=== PATIENT | female | born 1965 | race African-American/Black ===

== ENCOUNTER 2017-06-17 18:24 | Inpatient (IN) | payer OTHER ==
[2017-06-17 19:55] VITALS: BMI 27.4
--- NOTE | 2017-06-17 19:55 | HP ---
CIWA Score - CIWA Score Nausea/Vomitin-Mild Nausea/No Vomiting Muscle Tremors: 4-Moderate,w/Arms Extend Anxiety: 4-Mod. Anxious/Guarded Agitation: 4-Moderately Restless Paroxysmal Sweats: 1-Minimal Palms Moist Orientation: 0-Oriented Tacttile Disturbances: 0-None Auditory Disturbances: 0-None Visual Disturbances: 0-None Headache: 0-None Present CIWA-Ar Total Score: 14 Admission ROS [facility] - HPI Chief Complaint: withdrawal sx Allergies/Adverse Reactions: Allergies Allergy/AdvReac Type Severity Reaction Status Date / Time No Known Allergies Allergy Verified 06/17/17 17:22 History of Present Illness: 51 years old female with long history of alcohol nicotine dependence has hypertension, diabetes ii hepatitis c and bipolar ii is admitted to detox Exam Limitations: No Limitations - Ebola screening Have you traveled outside of the country in the last 21 days: No Have you had contact with anyone from an Ebola affected area: No Do you have a fever: No - Review of Systems Constitutional: Changes in sleep, Weight Stable EENT: reports: Blurred Vision (need eye glasses) Respiratory: reports: No Symptoms reported Cardiac: reports: No Symptoms Reported GI: reports: Constipated, Nausea, Poor Fluid Intake, Indigestion, Abdominal cramping : reports: No Symptoms Reported Musculoskeletal: reports: Back Pain, Joint Pain (left) Integumentary: reports: No Symptoms Reported Neuro: reports: Tremors Endocrine: reports: No Symptoms Reported Hematology: reports: No Symptoms Reported Psychiatric: reports: Judgement Intact, Orientated x3, Anxious, Depressed Other Systems: Reviewed and Negative Patient History - Patient Medical History Hx Anemia: No Hx Asthma: No Hx Chronic Obstructive Pulmonary Disease (COPD): No Hx Cancer: No Hx Cardiac Disorders: No Hx Congestive Heart Failure: No Hx Hypertension: Yes Hx Hypercholesterolemia: No Hx Pacemaker: No HX Cerebrovascular Accident: No Hx Seizures: No Hx Dementia: No Hx Diabetes: Yes Hx Gastrointestinal Disorders: Yes Hx Liver Disease: No Hx Genitourinary Disorders: No Hx Sexually Transmitted Disorders: No Hx Renal Disease (ESRD): No Hx Thyroid Disease: No Hx Human Immunodeficiency Virus (HIV): No Hx Hepatitis C: Yes Hx Depression: No Hx Suicide Attempt: No Hx Bipolar Disorder: Yes Hx Schizophrenia: No - Patient Surgical History Past Surgical History: Yes Hx Neurologic Surgery: No Hx Cataract Extraction: No Hx Cardiac Surgery: No Hx Lung Surgery: No Hx Breast Surgery: Yes (left ) Hx Breast Biopsy: No Hx Abdominal Surgery: No Hx Appendectomy: No Hx Cholecystectomy: No Hx Genitourinary Surgery: No Hx Section: No Hx Orthopedic Surgery: No Hx Hysterectomy: Yes (2014) Anesthesia Reaction: No - PPD History Previous Implant?: Yes Documented Results: Negative w/o proof Implanted On Prior [facility] Admission?: No PPD to be Administered?: Yes - Reproductive History Patient is a Female of Child Bearing Age (11 -55 yrs old): Yes Last Menstrual Period: 06/17/15 Patient : No - Smoking Cessation Smoking history: Current every day smoker Have you smoked in the past 12 months: Yes Aproximately how many cigarettes per day: 20 Cigars Per Day: 0 Hx Chewing Tobacco Use: No Initiated information on smoking cessation: Yes 'Breaking Loose' booklet given: 06/17/17 - Substance & Tx. History Hx Alcohol Use: Yes Hx Substance Use: No Substance Use Type: Alcohol Hx Substance Use Treatment: Yes (2014) - Substances Abused Alcohol Route: Oral Frequency: Daily Amount used: pint vodka, rum, Age of first use: 26 Date of Last Use: 06/17/17 Family Disease History - Family Disease History Family Disease History: [place]: Father (), Other: Father, Mother () , Brother ( hiv) Admission Physical Exam [facility] - Physical General Appearance: Yes: Nourished, Appropriately Dressed, Mild Distress, Tremorous, Irritable, Sweating, Anxious HEENTM: Yes: Hearing grossly Normal, Normal ENT Inspection, Normocephalic, Normal Voice Respiratory: Yes: Chest Non-Tender, Lungs Clear, Normal Breath Sounds, No Respiratory Distress, No Accessory Muscle Use Neck: Yes: Supple, Trachea in good position Breast: Yes: Breasts Symetrical Cardiology: Yes: Regular Rhythm, Regular Rate, S1, S2 Abdominal: Yes: Non Tender, Soft, Decreased BS Genitourinary: Yes: Within Normal Limits Back: Yes: Normal Inspection Musculoskeletal: Yes: full range of Motion, Gait Steady, Muscle Pain (right leg) Extremities: Yes: Normal Inspection, Normal Range of Motion, Non-Tender, Tremors Neurological: Yes: Fully Oriented, Alert, Motor Strength 5/5, Normal Response, Depressed Affect Integumentary: Yes: Warm Lymphatic: Yes: Within Normal Limits - Diagnostic (1) Alcohol dependence with uncomplicated withdrawal Current Visit: Yes Status: Acute (2) Diabetes mellitus type II, controlled Current Visit: Yes Status: Chronic Qualifiers: Diabetes mellitus complication status: without complication Diabetes mellitus chcf insulin use: without manager labor relations use Qualified Code(s): E11.9 - Type 2 diabetes mellitus without complications (3) Hepatitis C Current Visit: Yes Status: Chronic Qualifiers: Viral hepatitis chronicity: carrier Qualified Code(s): B18.2 - Chronic viral hepatitis C (4) Nicotine dependence Current Visit: Yes Status: Acute Qualifiers: Nicotine product type: cigarettes Substance use status: in withdrawal Qualified Code(s): F17.213 - Nicotine dependence, cigarettes, with withdrawal (5) Hypertension Current Visit: Yes Status: Chronic Qualifiers: Hypertension type: essential hypertension Qualified Code(s): I10 - Essential (primary) hypertension (6) GERD (gastroesophageal reflux disease) Current Visit: Yes Status: Chronic Qualifiers: Esophagitis presence: without esophagitis Qualified Code(s): K21.9 - Gastro -esophageal reflux disease without esophagitis (7) Constipation Current Visit: Yes Status: Chronic Qualifiers: Constipation type: slow transit constipation Qualified Code(s): K59.01 - Slow transit constipation (8) Sensitive skin Current Visit: Yes Status: Chronic (9) Bipolar II disorder Current Visit: Yes Status: Suspected Cleared for Admission S - Detox or Rehab [facility] Level of Care: Medically Managed Detox Regimen/Protocol: Librium S Breath Alcohol Content Breath Alcohol Content: 0 Vital Signs - Vital Signs Vital Signs Refused: No Temperature: 98 F Temperature Source: Oral Pulse Rate: 85 Respiratory Rate: 18 Blood Pressure: 125/87 BP Location: Left Arm Blood Pressure Position: Sitting - Height Height: 5 ft 2 in - Weight Weight: 150 lb Weight Measurement Method: Standing Scale Body Mass Index (BMI): 27.4 - Bowel Function Bowel Movement: No Urine Pregancy Test - Result Urine Test Results: Negative- NO Line Present Urine Drug Screen - Control Is Test Valid: Yes - Results Drug Screen Negative: Yes
[2017-06-17] MEDS ORDERED: P-EPHED 60MG/TRIPROLIDI 2.5MG TABLET PO PRN (20:02)
[2017-06-17] MEDS ORDERED: ACETAMINOPHEN 325 MG TABLET (FP) PO PRN (20:02)
[2017-06-17] MEDS ORDERED: MENTHOL/PHENOL 1 EACH UD MM PRN (20:02)
[2017-06-17] MEDS ORDERED: MAG HYDROX/AL HYDROX/SIMETH 30 ML UNIT-DOSE CUP PO PRN (20:02)
[2017-06-17] MEDS ORDERED: NICOTINE POLACRILEX 4 MG GUM BC PRN (20:02)
[2017-06-17] MEDS ORDERED: MAGNESIUM CITRATE 300 ML BOTTLE PO PRN (20:02)
[2017-06-17] MEDS ORDERED: LOPERAMIDE HCL 2 MG CAPSULE PO PRN (20:02)
[2017-06-17] MEDS ORDERED: MAGNESIUM HYDROX 2400MG/30ML ORAL SUSPENSION 30 ML CUP PO PRN (20:02)
[2017-06-17] MEDS ORDERED: guaiFENesin/D-METHORPHAN HB 10 ML UNIT-DOSE CUPS PO PRN (20:02)
[2017-06-17] MEDS ORDERED: DOCUSATE SODIUM 100 MG CAPSULE (FP) PO PRN (20:04)
[2017-06-17] MEDS: chlordiazePOXIDE HCL 25 MG CAPSULE PO PRN (20:31)
[2017-06-17] MEDS: RANITIDINE HCL 150 MG TABLET (FP) PO SCH ×2 (20:31→22:30)
[2017-06-17] MEDS: GABAPENTIN 400 MG CAPSULE (FP) PO SCH (22:30)
[2017-06-17] MEDS: SENNOSIDES 8.6MG TABLET (FP) PO SCH (22:30)
[2017-06-17] MEDS: THIAMINE HCL 100 MG TABLET (FP) PO SCH (22:30)
[2017-06-17] MEDS: chlordiazePOXIDE HCL 25 MG CAPSULE PO SCH (22:30)
[2017-06-18 00:19] LABS: URINE APPEARANCE SLCLOUDY; URINE BILIRUBIN NEGATIVE (NEGATIVE); URINE BLOOD NEGATIVE (NEGATIVE); URINE COLOR YELLOW; URINE GLUCOSE (UA) NEGATIVE (NEGATIVE); URINE KETONE NEGATIVE (NEGATIVE); URINE NITRITE NEGATIVE (NEGATIVE); URINE PROTEIN NEGATIVE (NEGATIVE); URINE UROBILINOGEN NEGATIVE mg/dL (0.2-1.0)
[2017-06-18] MEDS: chlordiazePOXIDE HCL 25 MG CAPSULE PO SCH ×4 (05:11→22:36)
[2017-06-18] MEDS: GABAPENTIN 400 MG CAPSULE (FP) PO SCH ×3 (05:11→22:36)
[2017-06-18] MEDS: metFORMIN HCL 500 MG TABLET (FP) PO SCH ×2 (06:08→17:25)
--- NOTE | 2017-06-18 07:50 | CONSULT ---
[facility] Psychiatric Consult - Data Date of interview: 06/18/17 Admission source: [facility] Identifying data: This is 51 years old female with no psychiatric hospitalization history intoxicated with: Alcohol and Nicotine Substance Abuse History: - Smoking Cessation. Smoking history: Current every day smoker. Have you smoked in the past 12 months: Yes. Aproximately how many cigarettes per day: 20. Cigars Per Day: 0. Hx Chewing Tobacco Use: No. Initiated information on smoking cessation: Yes. 'Breaking Loose' booklet given : 06/17/17. - Substance & Tx. History. Hx Alcohol Use: Yes. Hx Substance Use : No. Substance Use Type: Alcohol. Hx Substance Use Treatment: Yes (2014). - Substances Abused. Alcohol. Route: Oral. Frequency: Daily. Amount used: pint vodka, rum,. Age of first use: 26. Date of Last Use: 06/17/17 Medical History: DM-2, HEP C+, HTN, GERD, Psychiatric History: As per computer patient carries Bipolar disorder, patioent reports no histrory of psychiatric hospitalizations, reports taking prior to admission: Celexa 40mg poqd. Remeron 30mg po qhs Physical/Sexual Abuse/Trauma History: Denies Additional Comment: Celexa 40mg poqd. Remeron 30mg po qhs Mental Status Exam - Mental Status Exam Alert and Oriented to: Person Cognitive Function: Fair Patient Appearance: Unkempt Mood: Sad Affect: Flat Patient Behavior: Sedated Speech Pattern: Delayed Voice Loudness: Mildly Soft/Quiet Thought Process: Goal Oriented Thought Disorder: Being Controlled Hallucinations: Denies Suicidal Ideation: Denies Homicidal Ideation: Denies Insight/Judgement: Fair Sleep: Difficulty falling asleep Appetite: Fair Muscle strength/Tone: Mild Hypotonicity Gait/Station: Shuffling Additional Comments: Celexa 40mg poqd. Remeron 30mg po qhs Psychiatric Findings - Problem List ([place] 1, 2,3) (1) Drug-induced mood disorder Current Visit: Yes Status: Acute (2) Alcohol dependence with uncomplicated withdrawal Current Visit: Yes Status: Acute (3) Nicotine dependence Current Visit: Yes Status: Acute Qualifiers: Nicotine product type: cigarettes Substance use status: in withdrawal Qualified Code(s): F17.213 - Nicotine dependence, cigarettes, with withdrawal (4) Bipolar II disorder Current Visit: Yes Status: Suspected - Initial Treatment Plan Initial Treatment Plan: Celexa 40mg poqd. Remeron 30mg po qhs
[2017-06-18 09:55] LABS: MEAN CELL VOLUME 93.8 fl (80-96); MEAN PLT VOLUME 9.8 fl (7.5-11.1); PLATELET COUNT 240 K/MM3 (134-434); WHITE BLOOD COUNT 7.3 K/mm3 (4.0-10.0)
[2017-06-18 10:19] LABS: ALBUMIN 3.9 g/dl (3.4-5.0); ALK PHOS 74 U/L (45-117); ANION GAP 4 (8-16); BILIRUBIN,TOTAL 0.5 mg/dL (0.2-1.0); CALCIUM 9.8 mg/dL (8.5-10.1); CO2 33 mmol/L (21-32); CREATININE 0.9 mg/dL (0.55-1.02); GLUCOSE,RANDOM 84 mg/dL (74-106); SGOT/AST 30 U/L (15-37); SGPT/ALT 49 U/L (12-78); TOT PROT 8.1 g/dl (6.4-8.2)
[2017-06-18] MEDS: ASPIRIN 81 MG CHEWABLE TABLETS PO SCH (10:35)
[2017-06-18] MEDS: HYDROCHLOROTHIAZIDE 25 MG TABLET (FP) PO SCH (10:35)
[2017-06-18] MEDS: LISINOPRIL 20 MG TABLET (FP) PO SCH (10:35)
[2017-06-18] MEDS: CITALOPRAM HYDROBROMIDE 20 MG TABLET (FP) PO SCH (10:35)
[2017-06-18] MEDS: PRENATAL VITAMINS W/ FOLIC ACID TABLET (FP) PO SCH (10:35)
[2017-06-18] MEDS: RANITIDINE HCL 150 MG TABLET (FP) PO SCH ×2 (10:36→22:37)
[2017-06-18] MEDS: NICOTINE 21 MG/24 HOURS TOPICAL PATCH TD SCH (10:38)
[2017-06-18 11:28] LABS: URINE LEUK ESTERASE Negative (NEGATIVE)
[2017-06-18 12:32] LABS: HIV 1 & 2 AB NEGATIVE; HIV 1 AGp24 NEGATIVE
--- NOTE | 2017-06-18 13:08 | EKG ---
Test Reason : Blood Pressure : / mmHG Vent. Rate : 066 BPM Atrial Rate : 066 BPM P-R Int : 136 ms QRS Dur : 092 ms QT Int : 428 ms P-R-T Axes : 063 028 065 degrees QTc Int : 448 ms NORMAL SINUS RHYTHM POSSIBLE LEFT ATRIAL ENLARGEMENT LEFT VENTRICULAR HYPERTROPHY ABNORMAL ECG NO PREVIOUS ECGS AVAILABLE Confirmed by SRIDHAR MCMAHON MD ([id number]) on 06/18/2017 1:08:13 PM Referred By: Confirmed By:SRIDHAR MCMAHON MD
--- NOTE | 2017-06-18 13:38 | PN ---
[facility] CIWA - CIWA Score Nausea/Vomitin-No Nausea/No Vomiting Muscle Tremors: 4-Moderate,w/Arms Extend Anxiety: 3 Agitation: 3 Paroxysmal Sweats: 3 Orientation: 0-Oriented Tacttile Disturbances: 0-None Auditory Disturbances: 0-None Visual Disturbances: 0-None Headache: 1-Very Mild CIWA-Ar Total Score: 14 S Progress Note (SOAP) Subjective: agitation anxiety sweats chills tired Objective: 06/18/17 13:36 Vital Signs Temperature 97.8 F 06/18/17 09:35 Pulse Rate 73 06/18/17 09:35 Respiratory Rate 18 06/18/17 09:35 Blood Pressure 107/80 06/18/17 09:35 O2 Sat by Pulse Oximetry (%) Laboratory Tests 06/17/17 06/18/17 06/18/17 23:27 05:16 07:00 WBC 7.3 RBC 5.14 Hgb 15.9 H Hct 48.3 H MCV 93.8 MCH 31.0 MCHC 33.0 RDW 14.0 Plt Count 240 MPV 9.8 Sodium Potassium Chloride Carbon Dioxide Anion Gap BUN Creatinine Creat Clearance w eGFR POC Glucometer 104 Random Glucose Calcium Total Bilirubin AST ALT Alkaline Phosphatase Total Protein Albumin Urine Color Yellow Urine Appearance Slcloudy Urine pH 5.0 Ur Specific [place] 1.020 Urine Protein Negative Urine Glucose (UA) Negative Urine Ketones Negative Urine Blood Negative Urine Nitrite Negative Urine Bilirubin Negative Urine Urobilinogen Negative Ur Leukocyte Esterase Negative RPR Titer HIV 1&2 Antibody Screen HIV P24 Antigen 06/18/17 06/18/17 06/18/17 07:00 07:00 07:00 WBC RBC Hgb Hct MCV MCH MCHC RDW Plt Count MPV Sodium 135 L Potassium 4.9 Chloride 98 Carbon Dioxide 33 H Anion Gap 4 L BUN 17 Creatinine 0.9 Creat Clearance w eGFR > 60 POC Glucometer Random Glucose 84 Calcium 9.8 Total Bilirubin 0.5 AST 30 ALT 49 Alkaline Phosphatase 74 Total Protein 8.1 Albumin 3.9 Urine Color Urine Appearance Urine pH Ur Specific [place] Urine Protein Urine Glucose (UA) Urine Ketones Urine Blood Urine Nitrite Urine Bilirubin Urine Urobilinogen Ur Leukocyte Esterase RPR Titer Nonreactive HIV 1&2 Antibody Screen Negative HIV P24 Antigen Negative aaox3 ambulating no acute distress Assessment: 06/18/17 13:37 withdrawal sx Plan: continue detox increase fluids
[2017-06-18] MEDS ORDERED: COLLOIDAL OATMEAL 1 BAR EACH TP PRN (15:38)
[2017-06-18] MEDS: CYCLOBENZAPRINE HCL 10 MG TABLET (FP) PO PRN (17:25)
[2017-06-18] MEDS: SENNOSIDES 8.6MG TABLET (FP) PO SCH (22:37)
[2017-06-18] MEDS: THIAMINE HCL 100 MG TABLET (FP) PO SCH (22:37)
[2017-06-18] MEDS: MIRTAZAPINE 15 MG TABLET (FP) PO SCH (22:37)
[2017-06-19] MEDS: chlordiazePOXIDE HCL 25 MG CAPSULE PO PRN (01:32)
[2017-06-19] MEDS: GABAPENTIN 400 MG CAPSULE (FP) PO SCH ×3 (05:53→22:54)
[2017-06-19] MEDS: chlordiazePOXIDE HCL 25 MG CAPSULE PO SCH ×3 (05:53→17:13)
[2017-06-19] MEDS: CYCLOBENZAPRINE HCL 10 MG TABLET (FP) PO PRN ×2 (05:54→11:07)
[2017-06-19] MEDS: metFORMIN HCL 500 MG TABLET (FP) PO SCH ×2 (08:00→17:13)
[2017-06-19] MEDS: ASPIRIN 81 MG CHEWABLE TABLETS PO SCH (11:06)
[2017-06-19] MEDS: RANITIDINE HCL 150 MG TABLET (FP) PO SCH ×2 (11:07→22:53)
[2017-06-19] MEDS: PRENATAL VITAMINS W/ FOLIC ACID TABLET (FP) PO SCH (11:07)
[2017-06-19] MEDS: CITALOPRAM HYDROBROMIDE 20 MG TABLET (FP) PO SCH (11:07)
[2017-06-19] MEDS: NICOTINE 21 MG/24 HOURS TOPICAL PATCH TD SCH (11:07)
[2017-06-19] MEDS: HYDROCHLOROTHIAZIDE 25 MG TABLET (FP) PO SCH (11:07)
[2017-06-19] MEDS: LISINOPRIL 20 MG TABLET (FP) PO SCH (11:07)
[2017-06-19] MEDS ORDERED: PNEUMOC 13-VAL CONJ-DIP CRM/PF 0.5 ML DISP.SYRIN IM ONE (12:00)
[2017-06-19] MEDS ORDERED: PNEUMOCOCCAL 23 VACCINE 0.5 ML VIAL IM ONE (12:00)
--- NOTE | 2017-06-19 13:25 | PN ---
S CIWA - CIWA Score Nausea/Vomitin-Int. Nausea w/Dry Heave Muscle Tremors: 3 Anxiety: 3 Agitation: 3 Paroxysmal Sweats: 3 Orientation: 0-Oriented Tacttile Disturbances: 1-Very Mild Itch/Numbness Auditory Disturbances: 0-None Visual Disturbances: 0-None Headache: 1-Very Mild CIWA-Ar Total Score: 18 S Progress Note (SOAP) Subjective: nausea, sweats, interrupted sleep, anxeity, vomiting x1 last night Objective: 06/19/17 13:25 Vital Signs - 24 hr 06/18/17 06/18/17 06/18/17 14:59 17:23 17:46 Temperature 97.7 F 97.9 F Pulse Rate 81 73 84 Respiratory 18 18 48 H Rate Blood Pressure 103/66 89/66 111/82 06/18/17 06/19/17 06/19/17 21:59 00:30 03:30 Temperature 98.1 F Pulse Rate 68 Respiratory 16 18 18 Rate Blood Pressure 96/57 06/19/17 06/19/17 06:43 10:06 Temperature 97.7 F 97.5 F L Pulse Rate 66 75 Respiratory 16 18 Rate Blood Pressure 101/74 122/76 Laboratory Tests 06/17/17 06/18/17 06/18/17 23:27 05:16 07:00 WBC 7.3 RBC 5.14 Hgb 15.9 H Hct 48.3 H MCV 93.8 MCH 31.0 MCHC 33.0 RDW 14.0 Plt Count 240 MPV 9.8 Sodium Potassium Chloride Carbon Dioxide Anion Gap BUN Creatinine Creat Clearance w eGFR POC Glucometer 104 Random Glucose Calcium Total Bilirubin AST ALT Alkaline Phosphatase Total Protein Albumin Urine Color Yellow Urine Appearance Slcloudy Urine pH 5.0 Ur Specific [place] 1.020 Urine Protein Negative Urine Glucose (UA) Negative Urine Ketones Negative Urine Blood Negative Urine Nitrite Negative Urine Bilirubin Negative Urine Urobilinogen Negative Ur Leukocyte Esterase Negative RPR Titer HIV 1&2 Antibody Screen HIV P24 Antigen 06/18/17 06/18/17 06/18/17 07:00 07:00 07:00 WBC RBC Hgb Hct MCV MCH MCHC RDW Plt Count MPV Sodium 135 L Potassium 4.9 Chloride 98 Carbon Dioxide 33 H Anion Gap 4 L BUN 17 Creatinine 0.9 Creat Clearance w eGFR > 60 POC Glucometer Random Glucose 84 Calcium 9.8 Total Bilirubin 0.5 AST 30 ALT 49 Alkaline Phosphatase 74 Total Protein 8.1 Albumin 3.9 Urine Color Urine Appearance Urine pH Ur Specific [place] Urine Protein Urine Glucose (UA) Urine Ketones Urine Blood Urine Nitrite Urine Bilirubin Urine Urobilinogen Ur Leukocyte Esterase RPR Titer Nonreactive HIV 1&2 Antibody Screen Negative HIV P24 Antigen Negative 06/18/17 06/19/17 16:32 05:57 WBC RBC Hgb Hct MCV MCH MCHC RDW Plt Count MPV Sodium Potassium Chloride Carbon Dioxide Anion Gap BUN Creatinine Creat Clearance w eGFR POC Glucometer 98 97 Random Glucose Calcium Total Bilirubin AST ALT Alkaline Phosphatase Total Protein Albumin Urine Color Urine Appearance Urine pH Ur Specific [place] Urine Protein Urine Glucose (UA) Urine Ketones Urine Blood Urine Nitrite Urine Bilirubin Urine Urobilinogen Ur Leukocyte Esterase RPR Titer HIV 1&2 Antibody Screen HIV P24 Antigen Assessment: 06/19/17 13:25 withdroumar sx, cont detox, symptomatic relief, zofran ordred, fluids, encoruage ambulation
[2017-06-19] MEDS: SENNOSIDES 8.6MG TABLET (FP) PO SCH (22:53)
[2017-06-19] MEDS: MIRTAZAPINE 15 MG TABLET (FP) PO SCH (22:53)
[2017-06-19] MEDS: THIAMINE HCL 100 MG TABLET (FP) PO SCH (22:53)
[2017-06-19] MEDS: chlordiazePOXIDE 5 MG CAPSULE PO SCH (22:54)
[2017-06-20] MEDS: GABAPENTIN 400 MG CAPSULE (FP) PO SCH ×3 (05:31→22:51)
[2017-06-20] MEDS: chlordiazePOXIDE 5 MG CAPSULE PO SCH ×3 (05:32→17:38)
[2017-06-20] MEDS: metFORMIN HCL 500 MG TABLET (FP) PO SCH ×2 (06:34→17:38)
[2017-06-20] MEDS: PRENATAL VITAMINS W/ FOLIC ACID TABLET (FP) PO SCH (10:41)
[2017-06-20] MEDS: HYDROCHLOROTHIAZIDE 25 MG TABLET (FP) PO SCH (10:42)
[2017-06-20] MEDS: ASPIRIN 81 MG CHEWABLE TABLETS PO SCH (10:42)
[2017-06-20] MEDS: LISINOPRIL 20 MG TABLET (FP) PO SCH (10:42)
[2017-06-20] MEDS: CITALOPRAM HYDROBROMIDE 20 MG TABLET (FP) PO SCH (10:42)
[2017-06-20] MEDS: RANITIDINE HCL 150 MG TABLET (FP) PO SCH ×2 (10:43→22:51)
[2017-06-20] MEDS: CYCLOBENZAPRINE HCL 10 MG TABLET (FP) PO PRN ×2 (10:44→22:52)
[2017-06-20] MEDS: NICOTINE 21 MG/24 HOURS TOPICAL PATCH TD SCH (10:46)
[2017-06-20] MEDS ORDERED: SODIUM PHOSPHATE/NA BIPHOS 133 ML ENEMA PR ONE (11:30)
--- NOTE | 2017-06-20 11:30 | PN ---
[facility] Progress Note (SOAP) Subjective: pt. c/o constipation, was given MOM then Citroma and is still constipated. Objective: 06/20/17 11:28 Vital Signs - 8 hr 06/20/17 06/20/17 06/20/17 03:30 06:00 10:00 Temperature 98.2 F 98.1 F Pulse Rate 74 79 Respiratory 17 18 20 Rate Blood Pressure 130/85 124/90 Laboratory Tests 06/17/17 06/18/17 06/18/17 23:27 05:16 07:00 WBC 7.3 RBC 5.14 Hgb 15.9 H Hct 48.3 H MCV 93.8 MCH 31.0 MCHC 33.0 RDW 14.0 Plt Count 240 MPV 9.8 Sodium Potassium Chloride Carbon Dioxide Anion Gap BUN Creatinine Creat Clearance w eGFR POC Glucometer 104 Random Glucose Calcium Total Bilirubin AST ALT Alkaline Phosphatase Total Protein Albumin Urine Color Yellow Urine Appearance Slcloudy Urine pH 5.0 Ur Specific [place] 1.020 Urine Protein Negative Urine Glucose (UA) Negative Urine Ketones Negative Urine Blood Negative Urine Nitrite Negative Urine Bilirubin Negative Urine Urobilinogen Negative Ur Leukocyte Esterase Negative RPR Titer HIV 1&2 Antibody Screen HIV P24 Antigen 06/18/17 06/18/17 06/18/17 07:00 07:00 07:00 WBC RBC Hgb Hct MCV MCH MCHC RDW Plt Count MPV Sodium 135 L Potassium 4.9 Chloride 98 Carbon Dioxide 33 H Anion Gap 4 L BUN 17 Creatinine 0.9 Creat Clearance w eGFR > 60 POC Glucometer Random Glucose 84 Calcium 9.8 Total Bilirubin 0.5 AST 30 ALT 49 Alkaline Phosphatase 74 Total Protein 8.1 Albumin 3.9 Urine Color Urine Appearance Urine pH Ur Specific [place] Urine Protein Urine Glucose (UA) Urine Ketones Urine Blood Urine Nitrite Urine Bilirubin Urine Urobilinogen Ur Leukocyte Esterase RPR Titer Nonreactive HIV 1&2 Antibody Screen Negative HIV P24 Antigen Negative 06/18/17 06/19/17 06/19/17 16:32 05:57 16:23 WBC RBC Hgb Hct MCV MCH MCHC RDW Plt Count MPV Sodium Potassium Chloride Carbon Dioxide Anion Gap BUN Creatinine Creat Clearance w eGFR POC Glucometer 98 97 117 Random Glucose Calcium Total Bilirubin AST ALT Alkaline Phosphatase Total Protein Albumin Urine Color Urine Appearance Urine pH Ur Specific [place] Urine Protein Urine Glucose (UA) Urine Ketones Urine Blood Urine Nitrite Urine Bilirubin Urine Urobilinogen Ur Leukocyte Esterase RPR Titer HIV 1&2 Antibody Screen HIV P24 Antigen 06/20/17 05:30 WBC RBC Hgb Hct MCV MCH MCHC RDW Plt Count MPV Sodium Potassium Chloride Carbon Dioxide Anion Gap BUN Creatinine Creat Clearance w eGFR POC Glucometer 119 Random Glucose Calcium Total Bilirubin AST ALT Alkaline Phosphatase Total Protein Albumin Urine Color Urine Appearance Urine pH Ur Specific [place] Urine Protein Urine Glucose (UA) Urine Ketones Urine Blood Urine Nitrite Urine Bilirubin Urine Urobilinogen Ur Leukocyte Esterase RPR Titer HIV 1&2 Antibody Screen HIV P24 Antigen labs noted Assessment: 06/20/17 11:29 Withdrawal sx. Constipation Plan: Continue detox Fleet's enema
[2017-06-20] MEDS: ONDANSETRON *ODT* 4 MG TABLET SL PRN (13:52)
[2017-06-20] MEDS: SENNOSIDES 8.6MG TABLET (FP) PO SCH (22:51)
[2017-06-20] MEDS: THIAMINE HCL 100 MG TABLET (FP) PO SCH (22:51)
[2017-06-20] MEDS: MIRTAZAPINE 15 MG TABLET (FP) PO SCH (22:52)
[2017-06-20] MEDS: chlordiazePOXIDE HCL 10 MG CAPSULE PO SCH (22:52)
[2017-06-21] MEDS: GABAPENTIN 400 MG CAPSULE (FP) PO SCH (05:56)
[2017-06-21] MEDS: chlordiazePOXIDE HCL 10 MG CAPSULE PO SCH ×2 (05:56→11:00)
[2017-06-21] MEDS: CYCLOBENZAPRINE HCL 10 MG TABLET (FP) PO PRN (05:59)
[2017-06-21] MEDS: metFORMIN HCL 500 MG TABLET (FP) PO SCH (07:01)
--- NOTE | 2017-06-21 09:53 | DS ---
[facility] Detox Discharge Summary Admission Date: 06/17/17 Discharge Date: 06/21/17 - History Present History: Alcohol Dependence Pertinent Past History: DM 2, HTN, GERD - Physical Exam Results Vital Signs: Vital Signs Temperature 97.7 F 06/21/17 06:18 Pulse Rate 66 06/21/17 06:18 Respiratory Rate 16 06/21/17 06:18 Blood Pressure 143/73 06/21/17 06:18 O2 Sat by Pulse Oximetry (%) Pertinent Admission Physical Exam Findings: withdrawal sx Laboratory Last Values WBC 7.3 K/mm3 (4.0-10.0) 06/18/17 07:00 RBC 5.14 M/mm3 (3.60-5.2) 06/18/17 07:00 Hgb 15.9 GM/dL (10.7-15.3) H 06/18/17 07:00 Hct 48.3 % (32.4-45.2) H 06/18/17 07:00 MCV 93.8 fl (80-96) 06/18/17 07:00 MCH 31.0 pg (25.7-33.7) 06/18/17 07:00 MCHC 33.0 g/dl (32.0-36.0) 06/18/17 07:00 RDW 14.0 % (11.6-15.6) 06/18/17 07:00 Plt Count 240 K/MM3 (134-434) 06/18/17 07:00 MPV 9.8 fl (7.5-11.1) 06/18/17 07:00 Sodium 135 mmol/L (136-145) L 06/18/17 07:00 Potassium 4.9 mmol/L (3.5-5.1) 06/18/17 07:00 Chloride 98 mmol/L (98-107) 06/18/17 07:00 Carbon Dioxide 33 mmol/L (21-32) H 06/18/17 07:00 Anion Gap 4 (8-16) L 06/18/17 07:00 BUN 17 mg/dL (7-18) 06/18/17 07:00 Creatinine 0.9 mg/dL (0.55-1.02) 06/18/17 07:00 Creat Clearance w eGFR > 60 (>60) 06/18/17 07:00 POC Glucometer 102 UNITS (80-120) 06/21/17 05:54 Random Glucose 84 mg/dL (74-106) 06/18/17 07:00 Calcium 9.8 mg/dL (8.5-10.1) 06/18/17 07:00 Total Bilirubin 0.5 mg/dL (0.2-1.0) 06/18/17 07:00 AST 30 U/L (15-37) 06/18/17 07:00 ALT 49 U/L (12-78) 06/18/17 07:00 Alkaline Phosphatase 74 U/L (45-117) 06/18/17 07:00 Total Protein 8.1 g/dl (6.4-8.2) 06/18/17 07:00 Albumin 3.9 g/dl (3.4-5.0) 06/18/17 07:00 Urine Color Yellow 06/17/17 23:27 Urine Appearance Slcloudy 06/17/17 23:27 Urine pH 5.0 (5.0-8.0) 06/17/17 23:27 Ur Specific [place] 1.020 (1.001-1.035) 06/17/17 23:27 Urine Protein Negative (NEGATIVE) 06/17/17 23:27 Urine Glucose (UA) Negative (NEGATIVE) 06/17/17 23:27 Urine Ketones Negative (NEGATIVE) 06/17/17 23:27 Urine Blood Negative (NEGATIVE) 06/17/17 23:27 Urine Nitrite Negative (NEGATIVE) 06/17/17 23:27 Urine Bilirubin Negative (NEGATIVE) 06/17/17 23:27 Urine Urobilinogen Negative mg/dL (0.2-1.0) 06/17/17 23:27 Ur Leukocyte Esterase Negative (NEGATIVE) 06/17/17 23:27 RPR Titer Nonreactive (NONREACTIVE) 06/18/17 07:00 HIV 1&2 Antibody Screen Negative 06/18/17 07:00 HIV P24 Antigen Negative 06/18/17 07:00 Labs noted - Treatment Hospital Course: Detox Protocol Followed, Detoxed Safely, Responded well, Discharged Condition Good, Rehab Referral Accepted Patient has Accepted a Rehab Referral to: [facility] - Medication Discharge Medications: Ambulatory Orders Aspirin [ASA -] 81 mg PO DAILY 06/17/17 Docusate Sodium [Colace -] 100 mg PO DAILY PRN 11/29/17 Folic Acid - 1 mg PO DAILY 06/17/17 Gabapentin [Neurontin -] 400 mg PO Q8H 06/17/17 Lisinopril/Hydrochlorothiazide [Lisinopril-Hctz 20-25 mg Tab] 1 each PO DAILY Metformin HCl [Glucophage -] 500 mg PO BID 06/17/17 Citalopram Hydrobromide [Citalopram HBr] 40 mg PO DAILY #30 tablet 06/18/17 Mirtazapine [Remeron -] 30 mg PO HS #30 tablet 06/18/17 - Diagnosis (1) Alcohol dependence with uncomplicated withdrawal Current Visit: Yes Status: Acute (2) Constipation Current Visit: Yes Status: Chronic Qualifiers: Constipation type: slow transit constipation Qualified Code(s): K59.01 - Slow transit constipation (3) Diabetes mellitus type II, controlled Current Visit: Yes Status: Chronic Qualifiers: Diabetes mellitus complication status: without complication Diabetes mellitus custodial insulin use: without custodial use Qualified Code(s): E11.9 - Type 2 diabetes mellitus without complications (4) Drug-induced mood disorder Current Visit: Yes Status: Acute (5) GERD (gastroesophageal reflux disease) Current Visit: Yes Status: Chronic Qualifiers: Esophagitis presence: without esophagitis Qualified Code(s): K21.9 - Gastro -esophageal reflux disease without esophagitis (6) Hepatitis C Current Visit: Yes Status: Chronic Qualifiers: Viral hepatitis chronicity: carrier Qualified Code(s): B18.2 - Chronic viral hepatitis C (7) Hypertension Current Visit: Yes Status: Chronic Qualifiers: Hypertension type: essential hypertension Qualified Code(s): I10 - Essential (primary) hypertension - AMA Did Patient Leave Against Medical Advice: No
[2017-06-21 10:05] VITALS: BP 126/89; PULSE 81; TEMP 98.6
[2017-06-21] MEDS: ASPIRIN 81 MG CHEWABLE TABLETS PO SCH (10:59)
[2017-06-21] MEDS: PRENATAL VITAMINS W/ FOLIC ACID TABLET (FP) PO SCH (10:59)
[2017-06-21] MEDS: LISINOPRIL 20 MG TABLET (FP) PO SCH (10:59)
[2017-06-21] MEDS: RANITIDINE HCL 150 MG TABLET (FP) PO SCH (11:00)
[2017-06-21] MEDS: HYDROCHLOROTHIAZIDE 25 MG TABLET (FP) PO SCH (11:00)
[2017-06-21] MEDS: CITALOPRAM HYDROBROMIDE 20 MG TABLET (FP) PO SCH (11:00)
[2017-06-21] MEDS: ONDANSETRON *ODT* 4 MG TABLET SL PRN (11:00)
[2017-06-21] MEDS: NICOTINE 21 MG/24 HOURS TOPICAL PATCH TD SCH (11:01)
== END 2017-06-21 11:22 | disposition home or self-care (01) | DRG 775 ==
LOC: YASAS 18:24 → Y6N 18:49
PROVIDERS: ADMIT Internal Medicine; ATTEND Internal Medicine
PROC: HZ2ZZZZ Detoxification Services for Substance Abuse Treatment (ICD-10-PCS; principal; 2017-06-17)
DX: F10.230 Alcohol dependence with withdrawal, uncomplicated (principal); F19.24 Other psychoactive substance dependence with psychoactive substance-induced mood disorder; F31.81 Bipolar II disorder; I10 Essential (primary) hypertension; K21.9 Gastro-esophageal reflux disease without esophagitis; B18.2 Chronic viral hepatitis C; E11.9 Type 2 diabetes mellitus without complications; Z79.84 Long term (current) use of oral hypoglycemic drugs; K59.01 Slow transit constipation; Z59.0 Homelessness
CPT/HCPCS: 36415; 80053; 81003; 85027; 86593; 87389; 90732; 93005; 93010; G0009

== ENCOUNTER 2017-11-16 09:50 | Inpatient (IN) | payer OTHER ==
[2017-11-16 10:25] VITALS: BMI 27.4
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
[2017-11-16] MEDS ORDERED: ACETAMINOPHEN 325 MG TABLET (FP) PO PRN (13:23)
[2017-11-16] MEDS ORDERED: MAGNESIUM CITRATE 300 ML BOTTLE PO PRN (13:23)
[2017-11-16] MEDS ORDERED: IBUPROFEN 400 MG TABLET (FP) PO PRN (13:23)
[2017-11-16] MEDS ORDERED: hydrOXYzine PAMOATE 25 MG CAPSULE (FP) PO PRN (13:23)
[2017-11-16] MEDS ORDERED: P-EPHED 60MG/TRIPROLIDI 2.5MG TABLET PO PRN (13:23)
[2017-11-16] MEDS ORDERED: LOPERAMIDE HCL 2 MG CAPSULE PO PRN (13:23)
[2017-11-16] MEDS ORDERED: MAGNESIUM HYDROX 2400MG/30ML ORAL SUSPENSION 30 ML CUP PO PRN (13:23)
[2017-11-16] MEDS ORDERED: guaiFENesin/D-METHORPHAN HB 10 ML UNIT-DOSE CUPS PO PRN (13:23)
[2017-11-16] MEDS ORDERED: chlordiazePOXIDE HCL 25 MG CAPSULE PO PRN (13:23)
[2017-11-16] MEDS ORDERED: MAG HYDROX/AL HYDROX/SIMETH 30 ML UNIT-DOSE CUP PO PRN (13:23)
[2017-11-16] MEDS ORDERED: MENTHOL/PHENOL 1 EACH UD MM PRN (13:23)
[2017-11-16] MEDS ORDERED: chlordiazePOXIDE HCL 25 MG CAPSULE PO ONE (14:30)
[2017-11-16] MEDS: ASPIRIN 81 MG CHEWABLE TABLETS PO SCH (14:48)
[2017-11-16] MEDS: LISINOPRIL 10 MG TABLET (FP) PO SCH (14:48)
[2017-11-16] MEDS: HYDROCHLOROTHIAZIDE 25 MG TABLET (FP) PO SCH (14:48)
[2017-11-16] MEDS: NICOTINE 21 MG/24 HOURS TOPICAL PATCH TD SCH (14:49)
[2017-11-16] MEDS: metFORMIN HCL 500 MG TABLET (FP) PO SCH (17:52)
[2017-11-16] MEDS: chlordiazePOXIDE HCL 25 MG CAPSULE PO SCH ×2 (17:52→22:33)
[2017-11-16] MEDS ORDERED: MELATONIN 5 MG TABLETS PO PRN (22:00)
--- NOTE | 2017-11-16 22:05 | EKG ---
Test Reason : Blood Pressure : / mmHG Vent. Rate : 077 BPM Atrial Rate : 077 BPM P-R Int : 132 ms QRS Dur : 086 ms QT Int : 414 ms P-R-T Axes : 053 018 059 degrees QTc Int : 468 ms NORMAL SINUS RHYTHM POSSIBLE LEFT ATRIAL ENLARGEMENT T WAVE ABNORMALITY, CONSIDER ANTERIOR ISCHEMIA PROLONGED QT ABNORMAL ECG WHEN COMPARED WITH ECG OF 17-JUN-2017 20:43, NO SIGNIFICANT CHANGE WAS FOUND Confirmed by NICK LEVY, CRISTIANO ([id number]) on 11/16/2017 10:04:48 PM Referred By: Confirmed By:CRISTIANO ROMERO MD
[2017-11-16] MEDS: THIAMINE HCL 100 MG TABLET (FP) PO SCH (22:32)
[2017-11-16 22:59] LABS: URINE APPEARANCE TURBID; URINE BILIRUBIN NEGATIVE (<2.0 mg/dL); URINE BLOOD NEGATIVE (NEGATIVE); URINE COLOR AMBER; URINE GLUCOSE (UA) NEGATIVE (NEGATIVE); URINE KETONE NEGATIVE (NEGATIVE); URINE LEUK ESTERASE NEGATIVE (NEGATIVE); URINE NITRITE NEGATIVE (NEGATIVE); URINE PROTEIN NEGATIVE (NEGATIVE)
[2017-11-17] MEDS: metFORMIN HCL 500 MG TABLET (FP) PO SCH ×2 (06:12→19:18)
[2017-11-17] MEDS: chlordiazePOXIDE HCL 25 MG CAPSULE PO SCH ×4 (06:12→22:23)
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
[2017-11-17 10:01] LABS: HEMOGLOBIN 14.9 GM/dL (10.7-15.3); MCH 30.8 pg (25.7-33.7); MEAN CELL VOLUME 90.7 fl (80-96); MEAN PLT VOLUME 10.7 fl (7.5-11.1); PLATELET COUNT 197 K/MM3 (134-434); RBC 4.85 M/mm3 (3.60-5.2); RDW 14.3 % (11.6-15.6); WHITE BLOOD COUNT 4.2 K/mm3 (4.0-10.0)
[2017-11-17] MEDS: PRENATAL VITAMINS W/ FOLIC ACID TABLET (FP) PO SCH (10:54)
[2017-11-17] MEDS: LISINOPRIL 10 MG TABLET (FP) PO SCH (10:54)
[2017-11-17] MEDS: ASPIRIN 81 MG CHEWABLE TABLETS PO SCH (10:54)
[2017-11-17] MEDS: GABAPENTIN 400 MG CAPSULE (FP) PO SCH ×3 (10:55→22:23)
[2017-11-17] MEDS: NICOTINE 21 MG/24 HOURS TOPICAL PATCH TD SCH (10:57)
[2017-11-17 11:11] LABS: CHLORIDE 107 mmol/L (98-107); POTASSIUM 4.5 mmol/L (3.5-5.1); SODIUM 144 mmol/L (136-145)
[2017-11-17] MEDS: HYDROCHLOROTHIAZIDE 25 MG TABLET (FP) PO SCH (11:19)
[2017-11-17 11:33] LABS: ALBUMIN 3.6 g/dl (3.4-5.0); ALK PHOS 73 U/L (45-117); ANION GAP 9 (8-16); BILIRUBIN,TOTAL 0.8 mg/dL (0.2-1.0); BLOOD UREA NITROGEN 15 mg/dL (7-18); CALCIUM 9.2 mg/dL (8.5-10.1); CO2 28 mmol/L (21-32); CREATININE 0.9 mg/dL (0.55-1.02); GLUCOSE,RANDOM 98 mg/dL (74-106); SGOT/AST 54 U/L (15-37); SGPT/ALT 82 U/L (12-78); TOT PROT 7.4 g/dl (6.4-8.2)
--- NOTE | 2017-11-17 12:00 | PN ---
S CIWA - CIWA Score Nausea/Vomitin-Mild Nausea/No Vomiting Muscle Tremors: 4-Moderate,w/Arms Extend Anxiety: 4-Mod. Anxious/Guarded Agitation: 4-Moderately Restless Paroxysmal Sweats: 1-Minimal Palms Moist Orientation: 0-Oriented Tacttile Disturbances: 1-Very Mild Itch/Numbness Auditory Disturbances: 0-None Visual Disturbances: 0-None Headache: 0-None Present CIWA-Ar Total Score: 15 BHS Progress Note (SOAP) Subjective: tremor sweat anxiety restlessness trouble sleep at night Objective: 11/17/17 12:01 Vital Signs Temperature 97.3 F L 11/17/17 10:39 Pulse Rate 78 11/17/17 10:39 Respiratory Rate 18 11/17/17 10:39 Blood Pressure 150/93 11/17/17 10:39 O2 Sat by Pulse Oximetry (%) Laboratory Last Values WBC 4.2 K/mm3 (4.0-10.0) D 11/17/17 06:00 RBC 4.85 M/mm3 (3.60-5.2) 11/17/17 06:00 Hgb 14.9 GM/dL (10.7-15.3) 11/17/17 06:00 Hct 44.0 % (32.4-45.2) 11/17/17 06:00 MCV 90.7 fl (80-96) 11/17/17 06:00 MCH 30.8 pg (25.7-33.7) 11/17/17 06:00 MCHC 34.0 g/dl (32.0-36.0) 11/17/17 06:00 RDW 14.3 % (11.6-15.6) 11/17/17 06:00 Plt Count 197 K/MM3 (134-434) 11/17/17 06:00 MPV 10.7 fl (7.5-11.1) 11/17/17 06:00 Sodium 144 mmol/L (136-145) 11/17/17 06:00 Potassium 4.5 mmol/L (3.5-5.1) 11/17/17 06:00 Chloride 107 mmol/L (98-107) 11/17/17 06:00 Carbon Dioxide 28 mmol/L (21-32) 11/17/17 06:00 Anion Gap 9 (8-16) 11/17/17 06:00 BUN 15 mg/dL (7-18) 11/17/17 06:00 Creatinine 0.9 mg/dL (0.55-1.02) 11/17/17 06:00 Creat Clearance w eGFR > 60 (>60) 11/17/17 06:00 POC Glucometer 87 UNITS (80-120) 11/17/17 05:41 Random Glucose 98 mg/dL (74-106) 11/17/17 06:00 Calcium 9.2 mg/dL (8.5-10.1) 11/17/17 06:00 Total Bilirubin 0.8 mg/dL (0.2-1.0) D 11/17/17 06:00 AST 54 U/L (15-37) H 11/17/17 06:00 ALT 82 U/L (12-78) H 11/17/17 06:00 Alkaline Phosphatase 73 U/L (45-117) 11/17/17 06:00 Total Protein 7.4 g/dl (6.4-8.2) 11/17/17 06:00 Albumin 3.6 g/dl (3.4-5.0) 11/17/17 06:00 Urine Color Radha 11/16/17 23:00 Urine Appearance Turbid 11/16/17 23:00 Urine pH 5.0 (5.0-8.0) 11/16/17 23:00 Ur Specific [place] 1.024 (1.001-1.035) 11/16/17 23:00 Urine Protein Negative (NEGATIVE) 11/16/17 23:00 Urine Glucose (UA) Negative (NEGATIVE) 11/16/17 23:00 Urine Ketones Negative (NEGATIVE) 11/16/17 23:00 Urine Blood Negative (NEGATIVE) 11/16/17 23:00 Urine Nitrite Negative (NEGATIVE) 11/16/17 23:00 Urine Bilirubin Negative (<2.0 mg/dL) 11/16/17 23:00 Urine Urobilinogen 2.0 mg/dL (0.2-1.0) H 11/16/17 23:00 Ur Leukocyte Esterase Negative (NEGATIVE) 11/16/17 23:00 HIV 1&2 Antibody Screen Negative 11/16/17 12:50 HIV P24 Antigen Negative 11/16/17 12:50 lab noted Assessment: 11/17/17 12:01 withdrawal sx Plan: continue detox
--- NOTE | 2017-11-17 15:23 | DS ---
[facility] Detox Discharge Summary Admission Date: 11/16/17 Discharge Date: 11/17/17 - History Present History: Alcohol Dependence - Physical Exam Results Vital Signs: Vital Signs Temperature 96.6 F L 11/17/17 14:34 Pulse Rate 80 11/17/17 14:34 Respiratory Rate 20 11/17/17 14:34 Blood Pressure 140/87 11/17/17 14:34 O2 Sat by Pulse Oximetry (%) - Medication Discharge Medications: Ambulatory Orders Aspirin [ASA -] 81 mg PO DAILY 06/17/17 Folic Acid - 1 mg PO DAILY 06/17/17 Gabapentin [Neurontin -] 400 mg PO Q8H 06/17/17 Lisinopril/Hydrochlorothiazide [Lisinopril-Hctz 20-25 mg Tab] 1 each PO DAILY metFORMIN HCL [Glucophage -] 500 mg PO BID 06/17/17 Citalopram Hydrobromide [Citalopram HBr] 40 mg PO DAILY #30 tablet 06/18/17 Ibuprofen 800 mg PO Q6H PRN 11/16/17 Trazodone HCl 100 mg PO HS 11/16/17
--- NOTE | 2017-11-17 16:50 | PN ---
Psychiatric Progress Note Vital Signs: Vital Signs Period Temp Pulse Resp BP Sys/Cooper Pulse Ox Last 24 Hr 96.6 F-98.0 F 69-89 18-20 120-169/48-96 Date of Session: 11/17/17 Chief Complaint:: " I was upset. No one was listening." HPI: Patient admitted to for alcohol and cocaine dependence. ROS: Hypertension, diabetes, Hep C Current Medications: Active Medications Generic Name Dose Route Start Last Admin Trade Name Freq PRN Reason Stop Dose Admin Acetaminophen 650 mg 11/16/17 13:23 Tylenol - PO Q4H PRN FEVER Al Hydroxide/Mg Hydroxide 30 ml 11/16/17 13:23 Mylanta Oral Suspension - PO Q6H PRN DYSPEPSIA Aspirin 81 mg 11/16/17 14:30 11/17/17 10:54 Asa - PO 81 mg DAILY SANDRA Administration Chlordiazepoxide HCl 25 mg 11/17/17 17:00 Librium - PO 11/18/17 11:01 [id number] SANDRA Chlordiazepoxide HCl 15 mg 11/18/17 17:00 Librium - PO 11/19/17 11:01 [id number] SANDRA Chlordiazepoxide HCl 25 mg 11/16/17 13:23 Librium - PO 11/19/17 13:22 Q4H PRN WITHDRAWAL(CONT SUBST) Chlordiazepoxide HCl 10 mg 11/19/17 17:00 Librium - PO 11/20/17 11:01 [id number] SANDRA Eucalyptus/Menthol/Phenol/Sorbitol 1 each 11/16/17 13:23 Cepastat Lozenge - MM Q4H PRN SORE THROAT Gabapentin 400 mg 11/17/17 10:15 11/17/17 13:38 Neurontin - PO 400 mg TID SANDRA Administration Guaifenesin 10 ml 11/16/17 13:23 Robitussin Dm - PO Q6H PRN COUGH Hydrochlorothiazide 25 mg 11/16/17 14:45 11/17/17 11:19 Hctz - PO 25 mg DAILY SANDRA Administration Hydroxyzine Pamoate 25 mg 11/16/17 13:23 11/17/17 15:44 Vistaril - PO 25 mg Q4H PRN Administration AGITATION Lisinopril 20 mg 11/16/17 15:00 11/17/17 10:54 Prinivil PO 20 mg DAILY SANDRA Administration Loperamide HCl 4 mg 11/16/17 13:23 Imodium - PO Q6H PRN DIARRHEA Magnesium Citrate 300 ml 11/16/17 13:23 Citroma - PO Q48H PRN CONSTIPATION Magnesium Hydroxide 30 ml 11/16/17 13:23 Milk Of Magnesia - PO DAILY PRN CONSTIPATION Melatonin 5 mg 11/16/17 22:00 Melatonin PO HS PRN INSOMNIA Metformin HCl 500 mg 11/16/17 16:30 11/17/17 06:12 Glucophage - PO 500 mg BIDAC SANDRA Administration Nicotine 21 mg 11/16/17 15:00 11/17/17 10:57 Nicoderm Patch - TD Not Given DAILY SANDRA Multivit/Folic Acid/Iron 1 tab 11/17/17 10:00 11/17/17 10:54 Vitamins (Sjr) - PO 1 tab DAILY SANDRA Administration Pseudoephedrine/Triprolidine 1 combo 11/16/17 13:23 Actifed - PO TID PRN NASAL CONGESTION Thiamine HCl 100 mg 11/16/17 22:00 11/16/17 22:32 Vitamin B1 - PO 100 mg HS SANDRA Administration Medication(s) Change(s): Yes. Will add Seroquel 50mg qhs. Trazodone 50mg will not be ordered. Current Side Effect: No Lab tests ordered: No Lab tests reviewed: Yes Provider note:: Patient left unit AMA without signing out after becoming frustrated on the unit. Patient stated to teletypewriter operator, " I left because no one was listening to me." Pt. tearful but in good control while speaking to teletypewriter operator. Pt. able to express herself appropriately. Patient reports a history of bipolar disorder but is unable to give a coheisve psychiatric history. Patient reports taking topamax 3 years ago and most recently taking trazodone but does not remember when. Patient was admitted to detox in 2016 and was prescribed celexa and mirtzapine but does not remember. Pt. with a history of nonadherence to medications and outpatient care. Pt. agreeable to starting seroquel 50mg qhs. Benefits and side effects discussed. Verbal consent given. Will continue to monitor. Total face to face time:: 25 Mental Status Exam - Mental Status Exam Alert and Oriented to: Time, Place, Person Cognitive Function: Good Patient Appearance: Well Groomed Mood: Anxious Affect: Mood Congruent Patient Behavior: Crying Speech Pattern: Appropriate Voice Loudness: Normal Thought Process: Goal Oriented Thought Disorder: Not Present Hallucinations: Denies Suicidal Ideation: Denies Homicidal Ideation: Denies Insight/Judgement: Poor Sleep: Poorly Appetite: Fair Muscle strength/Tone: Normal Gait/Station: Normal Psychiatric Treatment Plan - Problem List (1) Substance induced mood disorder Current Visit: Yes (2) Cocaine dependence, uncomplicated Current Visit: Yes (3) Alcohol dependence with uncomplicated withdrawal Current Visit: Yes (4) Nicotine dependence Current Visit: Yes Qualifiers: Nicotine product type: cigarettes Substance use status: in withdrawal Qualified Code(s): F17.213 - Nicotine dependence, cigarettes, with withdrawal (5) Insomnia Current Visit: Yes
[2017-11-17] MEDS: THIAMINE HCL 100 MG TABLET (FP) PO SCH (22:23)
[2017-11-17] MEDS: QUEtiapine FUMARATE 50 MG TABLET PO SCH (22:23)
[2017-11-18] MEDS: chlordiazePOXIDE HCL 25 MG CAPSULE PO SCH ×2 (06:00→11:07)
[2017-11-18] MEDS: GABAPENTIN 400 MG CAPSULE (FP) PO SCH ×3 (06:02→22:19)
--- NOTE | 2017-11-18 10:13 | PN ---
[facility] CIWA - CIWA Score Nausea/Vomitin-No Nausea/No Vomiting Muscle Tremors: 4-Moderate,w/Arms Extend Anxiety: 3 Agitation: 3 Paroxysmal Sweats: 1-Minimal Palms Moist Orientation: 0-Oriented Tacttile Disturbances: 1-Very Mild Itch/Numbness Auditory Disturbances: 0-None Visual Disturbances: 0-None Headache: 0-None Present CIWA-Ar Total Score: 12 BHS Progress Note (SOAP) Subjective: cold chill sweat tremor anxiety restlessness Objective: 11/18/17 10:14 Vital Signs Temperature 97.5 F L 11/18/17 09:30 Pulse Rate 87 11/18/17 09:30 Respiratory Rate 18 11/18/17 09:30 Blood Pressure 129/90 11/18/17 09:30 O2 Sat by Pulse Oximetry (%) Laboratory Last Values WBC 4.2 K/mm3 (4.0-10.0) D 11/17/17 06:00 RBC 4.85 M/mm3 (3.60-5.2) 11/17/17 06:00 Hgb 14.9 GM/dL (10.7-15.3) 11/17/17 06:00 Hct 44.0 % (32.4-45.2) 11/17/17 06:00 MCV 90.7 fl (80-96) 11/17/17 06:00 MCH 30.8 pg (25.7-33.7) 11/17/17 06:00 MCHC 34.0 g/dl (32.0-36.0) 11/17/17 06:00 RDW 14.3 % (11.6-15.6) 11/17/17 06:00 Plt Count 197 K/MM3 (134-434) 11/17/17 06:00 MPV 10.7 fl (7.5-11.1) 11/17/17 06:00 Sodium 144 mmol/L (136-145) 11/17/17 06:00 Potassium 4.5 mmol/L (3.5-5.1) 11/17/17 06:00 Chloride 107 mmol/L (98-107) 11/17/17 06:00 Carbon Dioxide 28 mmol/L (21-32) 11/17/17 06:00 Anion Gap 9 (8-16) 11/17/17 06:00 BUN 15 mg/dL (7-18) 11/17/17 06:00 Creatinine 0.9 mg/dL (0.55-1.02) 11/17/17 06:00 Creat Clearance w eGFR > 60 (>60) 11/17/17 06:00 POC Glucometer 98 UNITS (80-120) 11/18/17 07:42 Random Glucose 98 mg/dL (74-106) 11/17/17 06:00 Calcium 9.2 mg/dL (8.5-10.1) 11/17/17 06:00 Total Bilirubin 0.8 mg/dL (0.2-1.0) D 11/17/17 06:00 AST 54 U/L (15-37) H 11/17/17 06:00 ALT 82 U/L (12-78) H 11/17/17 06:00 Alkaline Phosphatase 73 U/L (45-117) 11/17/17 06:00 Total Protein 7.4 g/dl (6.4-8.2) 11/17/17 06:00 Albumin 3.6 g/dl (3.4-5.0) 11/17/17 06:00 Urine Color Radha 11/16/17 23:00 Urine Appearance Turbid 11/16/17 23:00 Urine pH 5.0 (5.0-8.0) 11/16/17 23:00 Ur Specific [place] 1.024 (1.001-1.035) 11/16/17 23:00 Urine Protein Negative (NEGATIVE) 11/16/17 23:00 Urine Glucose (UA) Negative (NEGATIVE) 11/16/17 23:00 Urine Ketones Negative (NEGATIVE) 11/16/17 23:00 Urine Blood Negative (NEGATIVE) 11/16/17 23:00 Urine Nitrite Negative (NEGATIVE) 11/16/17 23:00 Urine Bilirubin Negative (<2.0 mg/dL) 11/16/17 23:00 Urine Urobilinogen 2.0 mg/dL (0.2-1.0) H 11/16/17 23:00 Ur Leukocyte Esterase Negative (NEGATIVE) 11/16/17 23:00 HIV 1&2 Antibody Screen Negative 11/16/17 12:50 HIV P24 Antigen Negative 11/16/17 12:50 lab noted Assessment: 11/18/17 10:15 withdrawal sx Plan: continue detox
[2017-11-18] MEDS: LISINOPRIL 10 MG TABLET (FP) PO SCH (10:26)
[2017-11-18] MEDS: NICOTINE 21 MG/24 HOURS TOPICAL PATCH TD SCH (10:26)
[2017-11-18] MEDS: ASPIRIN 81 MG CHEWABLE TABLETS PO SCH (10:26)
[2017-11-18] MEDS: PRENATAL VITAMINS W/ FOLIC ACID TABLET (FP) PO SCH (10:26)
[2017-11-18] MEDS: HYDROCHLOROTHIAZIDE 25 MG TABLET (FP) PO SCH (10:26)
[2017-11-18] MEDS: metFORMIN HCL 500 MG TABLET (FP) PO SCH ×2 (10:27→18:04)
[2017-11-18] MEDS: chlordiazePOXIDE 5 MG CAPSULE PO SCH ×2 (18:04→22:19)
[2017-11-18] MEDS: QUEtiapine FUMARATE 50 MG TABLET PO SCH (22:18)
[2017-11-18] MEDS: THIAMINE HCL 100 MG TABLET (FP) PO SCH (22:18)
[2017-11-19] MEDS: metFORMIN HCL 500 MG TABLET (FP) PO SCH (07:17)
[2017-11-19] MEDS: chlordiazePOXIDE 5 MG CAPSULE PO SCH ×2 (07:17→10:48)
[2017-11-19] MEDS: GABAPENTIN 400 MG CAPSULE (FP) PO SCH (07:17)
[2017-11-19 10:27] VITALS: BP 135/83; PULSE 92; TEMP 96.6
[2017-11-19] MEDS: NICOTINE 21 MG/24 HOURS TOPICAL PATCH TD SCH (10:49)
[2017-11-19] MEDS: LISINOPRIL 10 MG TABLET (FP) PO SCH (10:49)
[2017-11-19] MEDS: HYDROCHLOROTHIAZIDE 25 MG TABLET (FP) PO SCH (10:49)
[2017-11-19] MEDS: ASPIRIN 81 MG CHEWABLE TABLETS PO SCH (10:49)
[2017-11-19] MEDS: PRENATAL VITAMINS W/ FOLIC ACID TABLET (FP) PO SCH (10:49)
--- NOTE | 2017-11-19 10:54 | DS ---
[facility] Detox Discharge Summary Admission Date: 11/16/17 Discharge Date: 11/19/17 - History Present History: Alcohol Dependence Additional Comments: 51 years old female admitted 11/16/17 for alcohol withdrawal sx patient reported feeling better, denies alcohol withdrawal sx alert oriented x 3 no acute distress wants to [facility] patient wants to be sober and maintain recovery - Physical Exam Results Vital Signs: Vital Signs Temperature 96.6 F L 11/19/17 10:00 Pulse Rate 92 H 11/19/17 10:00 Respiratory Rate 16 11/19/17 10:00 Blood Pressure 135/83 11/19/17 10:00 O2 Sat by Pulse Oximetry (%) Pertinent Admission Physical Exam Findings: withdrawal sx Laboratory Last Values WBC 4.2 K/mm3 (4.0-10.0) D 11/17/17 06:00 RBC 4.85 M/mm3 (3.60-5.2) 11/17/17 06:00 Hgb 14.9 GM/dL (10.7-15.3) 11/17/17 06:00 Hct 44.0 % (32.4-45.2) 11/17/17 06:00 MCV 90.7 fl (80-96) 11/17/17 06:00 MCH 30.8 pg (25.7-33.7) 11/17/17 06:00 MCHC 34.0 g/dl (32.0-36.0) 11/17/17 06:00 RDW 14.3 % (11.6-15.6) 11/17/17 06:00 Plt Count 197 K/MM3 (134-434) 11/17/17 06:00 MPV 10.7 fl (7.5-11.1) 11/17/17 06:00 Sodium 144 mmol/L (136-145) 11/17/17 06:00 Potassium 4.5 mmol/L (3.5-5.1) 11/17/17 06:00 Chloride 107 mmol/L (98-107) 11/17/17 06:00 Carbon Dioxide 28 mmol/L (21-32) 11/17/17 06:00 Anion Gap 9 (8-16) 11/17/17 06:00 BUN 15 mg/dL (7-18) 11/17/17 06:00 Creatinine 0.9 mg/dL (0.55-1.02) 11/17/17 06:00 Creat Clearance w eGFR > 60 (>60) 11/17/17 06:00 POC Glucometer 86 UNITS (80-120) 11/18/17 16:20 Random Glucose 98 mg/dL (74-106) 11/17/17 06:00 Calcium 9.2 mg/dL (8.5-10.1) 11/17/17 06:00 Total Bilirubin 0.8 mg/dL (0.2-1.0) D 11/17/17 06:00 AST 54 U/L (15-37) H 11/17/17 06:00 ALT 82 U/L (12-78) H 11/17/17 06:00 Alkaline Phosphatase 73 U/L (45-117) 11/17/17 06:00 Total Protein 7.4 g/dl (6.4-8.2) 11/17/17 06:00 Albumin 3.6 g/dl (3.4-5.0) 11/17/17 06:00 Urine Color Radha 11/16/17 23:00 Urine Appearance Turbid 11/16/17 23:00 Urine pH 5.0 (5.0-8.0) 11/16/17 23:00 Ur Specific [employer] 1.024 (1.001-1.035) 11/16/17 23:00 Urine Protein Negative (NEGATIVE) 11/16/17 23:00 Urine Glucose (UA) Negative (NEGATIVE) 11/16/17 23:00 Urine Ketones Negative (NEGATIVE) 11/16/17 23:00 Urine Blood Negative (NEGATIVE) 11/16/17 23:00 Urine Nitrite Negative (NEGATIVE) 11/16/17 23:00 Urine Bilirubin Negative (<2.0 mg/dL) 11/16/17 23:00 Urine Urobilinogen 2.0 mg/dL (0.2-1.0) H 11/16/17 23:00 Ur Leukocyte Esterase Negative (NEGATIVE) 11/16/17 23:00 RPR Titer Nonreactive (NONREACTIVE) 11/17/17 06:00 HIV 1&2 Antibody Screen Negative 11/16/17 12:50 HIV P24 Antigen Negative 11/16/17 12:50 lab noted - Treatment Hospital Course: Detox Protocol Followed, Detoxed Safely, Responded well, Discharged Condition Good, Rehab Referral Accepted Patient has Accepted a Rehab Referral to: [facility] - Medication Discharge Medications: Ambulatory Orders Aspirin [ASA -] 81 mg PO DAILY 06/17/17 Folic Acid - 1 mg PO DAILY 06/17/17 Lisinopril/Hydrochlorothiazide [Lisinopril-Hctz 20-25 mg Tab] 1 each PO DAILY Citalopram Hydrobromide [Citalopram HBr] 40 mg PO DAILY #30 tablet 06/18/17 Ibuprofen 800 mg PO Q6H PRN 11/16/17 Trazodone HCl 100 mg PO HS 11/16/17 Gabapentin [Neurontin -] 400 mg PO Q8H #120 capsule 11/19/17 Lisinopril [Prinivil] 20 mg PO DAILY #30 tablet 11/19/17 metFORMIN HCL [Glucophage -] 500 mg PO BID #60 tablet 11/19/17 - Diagnosis (1) Alcohol dependence with uncomplicated withdrawal Current Visit: Yes Status: Acute (2) Nicotine dependence Current Visit: Yes Status: Acute Qualifiers: Nicotine product type: cigarettes Substance use status: in withdrawal Qualified Code(s): F17.213 - Nicotine dependence, cigarettes, with withdrawal (3) Hepatitis C Current Visit: Yes Status: Resolved Qualifiers: Viral hepatitis chronicity: carrier Qualified Code(s): B18.2 - Chronic viral hepatitis C (4) Hypertension Current Visit: Yes Status: Chronic Qualifiers: Hypertension type: essential hypertension Qualified Code(s): I10 - Essential (primary) hypertension (5) Bipolar II disorder Current Visit: Yes Status: Suspected - AMA Did Patient Leave Against Medical Advice: No
[2017-11-19] MEDS ORDERED: chlordiazePOXIDE HCL 10 MG CAPSULE PO SCH (17:00)
== END 2017-11-19 11:45 | disposition other institution (70) | DRG 774 ==
LOC: YASAS 09:50 → Y6N 12:35
PROVIDERS: ADMIT Internal Medicine; ATTEND Internal Medicine
PROC: HZ2ZZZZ Detoxification Services for Substance Abuse Treatment (ICD-10-PCS; principal; 2017-11-16)
DX: F10.230 Alcohol dependence with withdrawal, uncomplicated (principal); F14.20 Cocaine dependence, uncomplicated; F17.210 Nicotine dependence, cigarettes, uncomplicated; F31.81 Bipolar II disorder; F19.24 Other psychoactive substance dependence with psychoactive substance-induced mood disorder; B18.2 Chronic viral hepatitis C; G47.00 Insomnia, unspecified; E11.9 Type 2 diabetes mellitus without complications; Z79.84 Long term (current) use of oral hypoglycemic drugs; K21.9 Gastro-esophageal reflux disease without esophagitis; S93.401A Sprain of unspecified ligament of right ankle, initial encounter; X58.XXXA Exposure to other specified factors, initial encounter; Y93.89 Activity, other specified; Y92.89 Other specified places as the place of occurrence of the external cause; Y99.8 Other external cause status; Z59.0 Homelessness
CPT/HCPCS: 36415; 73610-TC-RT-FY; 80053; 81003; 82962; 85027; 86593; 87389; 93005; 93010

== ENCOUNTER 2018-05-11 10:36 | Inpatient (IN) | payer OTHER ==
[2018-05-11 11:17] VITALS: BMI 25.9
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
[2018-05-11] MEDS ORDERED: MAGNESIUM HYDROX 2400MG/30ML ORAL SUSPENSION 30 ML CUP PO PRN (12:58)
[2018-05-11] MEDS ORDERED: LOPERAMIDE HCL 2 MG CAPSULE PO PRN (12:58)
[2018-05-11] MEDS ORDERED: guaiFENesin/D-METHORPHAN HB 10 ML UNIT-DOSE CUPS PO PRN (12:58)
[2018-05-11] MEDS ORDERED: MENTHOL/PHENOL 1 EACH UD MM PRN (12:58)
[2018-05-11] MEDS ORDERED: MAGNESIUM CITRATE 300 ML BOTTLE PO PRN (12:58)
[2018-05-11] MEDS ORDERED: ACETAMINOPHEN 325 MG TABLET (FP) PO PRN (12:58)
[2018-05-11] MEDS ORDERED: IBUPROFEN 400 MG TABLET (FP) PO PRN (12:58)
[2018-05-11] MEDS ORDERED: MAG HYDROX/AL HYDROX/SIMETH 30 ML UNIT-DOSE CUP PO PRN (12:58)
[2018-05-11] MEDS ORDERED: hydrOXYzine PAMOATE 25 MG CAPSULE (FP) PO PRN (12:58)
[2018-05-11] MEDS ORDERED: P-EPHED 60MG/TRIPROLIDI 2.5MG TABLET PO PRN (12:58)
[2018-05-11] MEDS: chlordiazePOXIDE HCL 25 MG CAPSULE PO PRN (14:04)
[2018-05-11] MEDS: HYDROCHLOROTHIAZIDE 25 MG TABLET (FP) PO SCH (14:04)
[2018-05-11] MEDS: NICOTINE 21 MG/24 HOURS TOPICAL PATCH TD SCH (14:05)
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
[2018-05-11] MEDS: metFORMIN HCL 500 MG TABLET (FP) PO SCH (17:30)
[2018-05-11] MEDS: chlordiazePOXIDE HCL 25 MG CAPSULE PO SCH ×2 (17:31→22:24)
--- NOTE | 2018-05-11 17:42 | EKG ---
Test Reason : Blood Pressure : / mmHG Vent. Rate : 067 BPM Atrial Rate : 067 BPM P-R Int : 122 ms QRS Dur : 092 ms QT Int : 408 ms P-R-T Axes : 068 021 057 degrees QTc Int : 431 ms NORMAL SINUS RHYTHM POSSIBLE LEFT ATRIAL ENLARGEMENT LEFT VENTRICULAR HYPERTROPHY ABNORMAL ECG WHEN COMPARED WITH ECG OF 16-NOV-2017 14:17, NO SIGNIFICANT CHANGE WAS FOUND Confirmed by Rey Galeano MD ([id number]) on 05/11/2018 5:41:44 PM Referred By: Confirmed By:Rey Galeano MD
[2018-05-11 19:21] LABS: URINE APPEARANCE CLOUDY; URINE BILIRUBIN NEGATIVE (<2.0 mg/dL); URINE COLOR AMBER; URINE GLUCOSE (UA) NEGATIVE (NEGATIVE); URINE KETONE NEGATIVE (NEGATIVE); URINE LEUK ESTERASE 1+ (NEGATIVE); URINE NITRITE NEGATIVE (NEGATIVE); URINE PROTEIN NEGATIVE (NEGATIVE); URINE UROBILINOGEN NEGATIVE mg/dL (0.2-1.0)
[2018-05-11 19:37] LABS: EPI CELLS MODERATE /HPF (FEW); URINE HYALINE CAST 1 /lpf; URINE MUCUS FEW
[2018-05-11] MEDS ORDERED: MELATONIN 5 MG TABLETS PO PRN (22:00)
[2018-05-11] MEDS: THIAMINE HCL 100 MG TABLET (FP) PO SCH (22:24)
[2018-05-12] MEDS: chlordiazePOXIDE HCL 25 MG CAPSULE PO SCH ×4 (05:36→22:11)
[2018-05-12] MEDS: metFORMIN HCL 500 MG TABLET (FP) PO SCH ×2 (06:18→17:24)
[2018-05-12] MEDS: PRENATAL VITAMINS W/ FOLIC ACID TABLET (FP) PO SCH (10:09)
[2018-05-12] MEDS: HYDROCHLOROTHIAZIDE 25 MG TABLET (FP) PO SCH (10:09)
[2018-05-12] MEDS: LISINOPRIL 10 MG TABLET (FP) PO SCH (10:09)
[2018-05-12] MEDS: NICOTINE 21 MG/24 HOURS TOPICAL PATCH TD SCH (10:09)
[2018-05-12] MEDS: ASPIRIN 81 MG CHEWABLE TABLETS PO SCH (10:09)
[2018-05-12] MEDS ORDERED: PNEUMOCOCCAL 23 VACCINE 0.5 ML VIAL IM ONE (12:00)
[2018-05-12] MEDS ORDERED: PNEUMOC 13-VAL CONJ-DIP CRM/PF 0.5 ML DISP.SYRIN IM ONE (12:00)
[2018-05-12] MEDS ORDERED: FLU VACCINE QUAD 60 MCG/0.5 ML (MDV 18-19) IM ONE (12:00)
--- NOTE | 2018-05-12 12:05 | PN ---
[facility] CIWA - CIWA Score Nausea/Vomitin-No Nausea/No Vomiting Muscle Tremors: 4-Moderate,w/Arms Extend Anxiety: 4-Mod. Anxious/Guarded Agitation: 4-Moderately Restless Paroxysmal Sweats: 3 Orientation: 0-Oriented Tacttile Disturbances: 0-None Auditory Disturbances: 0-None Visual Disturbances: 0-None Headache: 0-None Present CIWA-Ar Total Score: 15 BHS Progress Note (SOAP) Subjective: agitation sweats shakes interrupted sleep body aches Objective: 05/12/18 12:05 Vital Signs Temperature 98.1 F 05/12/18 09:35 Pulse Rate 74 05/12/18 09:35 Respiratory Rate 16 05/12/18 09:35 Blood Pressure 117/81 05/12/18 09:35 O2 Sat by Pulse Oximetry (%) Laboratory Tests 05/11/18 05/11/18 05/11/18 12:20 16:01 16:22 POC Glucometer 130 132 Urine Color Radha Urine Appearance Cloudy Urine pH 5.0 Ur Specific [place] 1.016 Urine Protein Negative Urine Glucose (UA) Negative Urine Ketones Negative Urine Blood Negative Urine Nitrite Negative Urine Bilirubin Negative Urine Urobilinogen Negative Ur Leukocyte Esterase 1+ H Urine WBC (Auto) 23 Urine RBC (Auto) 3 Ur Epithelial Cells Moderate Hyaline Casts 1 Urine Mucus Few 05/12/18 05:35 POC Glucometer 112 Urine Color Urine Appearance Urine pH Ur Specific [place] Urine Protein Urine Glucose (UA) Urine Ketones Urine Blood Urine Nitrite Urine Bilirubin Urine Urobilinogen Ur Leukocyte Esterase Urine WBC (Auto) Urine RBC (Auto) Ur Epithelial Cells Hyaline Casts Urine Mucus rest of labs pending aaox3 ambulating no acute distress racoon eyes noted pt states she fell a week ago and landed on her head. pt states she was evaluated at her local hospital and released. pt denies of any headaches. Assessment: 05/12/18 12:05 withdrawal sx Plan: continue detox increase fluids labs pending
[2018-05-12 14:20] LABS: HEMATOCRIT 48.6 % (32.4-45.2); HEMOGLOBIN 15.6 GM/dL (10.7-15.3); MCH 30.1 pg (25.7-33.7); MCHC 32.2 g/dl (32.0-36.0); MEAN CELL VOLUME 93.3 fl (80-96); MEAN PLT VOLUME 10.6 fl (7.5-11.1); PLATELET COUNT 217 K/MM3 (134-434); RDW 14.5 % (11.6-15.6); WHITE BLOOD COUNT 8.3 K/mm3 (4.0-10.0)
[2018-05-12 15:04] LABS: ALBUMIN 4.1 g/dl (3.4-5.0); ALK PHOS 72 U/L (45-117); ANION GAP 9 MMOL/L (8-16); BILIRUBIN,TOTAL 0.6 mg/dL (0.2-1); BLOOD UREA NITROGEN 15 mg/dL (7-18); CHLORIDE 97 mmol/L (98-107); CO2 29 mmol/L (21-32); CREATININE 0.7 mg/dL (0.55-1.3); GLUCOSE,RANDOM 123 mg/dL (74-106); POTASSIUM 4.4 mmol/L (3.5-5.1); SGOT/AST 57 U/L (15-37); SGPT/ALT 84 U/L (13-61); SODIUM 136 mmol/L (136-145); TOT PROT 8.4 g/dl (6.4-8.2)
[2018-05-12] MEDS: THIAMINE HCL 100 MG TABLET (FP) PO SCH (22:11)
[2018-05-13] MEDS: chlordiazePOXIDE HCL 25 MG CAPSULE PO SCH ×2 (05:57→13:06)
[2018-05-13] MEDS: metFORMIN HCL 500 MG TABLET (FP) PO SCH ×2 (06:24→17:25)
[2018-05-13] MEDS ORDERED: LIDOCAINE VISCOUS 2% ORAL/TOP 20 ML UNIT-DOSE CUP MM PRN (10:49)
--- NOTE | 2018-05-13 10:49 | PN ---
[facility] CIWA - CIWA Score Nausea/Vomitin-No Nausea/No Vomiting Muscle Tremors: 4-Moderate,w/Arms Extend Anxiety: 2 Agitation: 4-Moderately Restless Paroxysmal Sweats: 3 Orientation: 0-Oriented Tacttile Disturbances: 0-None Auditory Disturbances: 0-None Visual Disturbances: 0-None Headache: 0-None Present CIWA-Ar Total Score: 13 BHS Progress Note (SOAP) Subjective: dry/itchy eyes sweats shakes are better controlled agitation body aches sore inside bottom lip; this hurts to eat Objective: 05/13/18 10:47 Vital Signs Temperature 97.3 F L 05/13/18 09:58 Pulse Rate 72 05/13/18 09:58 Respiratory Rate 18 05/13/18 09:58 Blood Pressure 112/66 05/13/18 09:58 O2 Sat by Pulse Oximetry (%) Laboratory Tests 05/11/18 05/11/18 05/11/18 12:20 16:01 16:22 WBC RBC Hgb Hct MCV MCH MCHC RDW Plt Count MPV Sodium Potassium Chloride Carbon Dioxide Anion Gap BUN Creatinine Creat Clearance w eGFR POC Glucometer 130 132 Random Glucose Calcium Total Bilirubin AST ALT Alkaline Phosphatase Total Protein Albumin Urine Color Radha Urine Appearance Cloudy Urine pH 5.0 Ur Specific [place] 1.016 Urine Protein Negative Urine Glucose (UA) Negative Urine Ketones Negative Urine Blood Negative Urine Nitrite Negative Urine Bilirubin Negative Urine Urobilinogen Negative Ur Leukocyte Esterase 1+ H Urine WBC (Auto) 23 Urine RBC (Auto) 3 Ur Epithelial Cells Moderate Hyaline Casts 1 Urine Mucus Few RPR Titer 05/12/18 05/12/18 05/12/18 05:35 05:55 05:55 WBC 8.3 RBC 5.20 Hgb 15.6 H Hct 48.6 H MCV 93.3 MCH 30.1 MCHC 32.2 RDW 14.5 Plt Count 217 MPV 10.6 Sodium 136 Potassium 4.4 Chloride 97 L Carbon Dioxide 29 Anion Gap 9 BUN 15 Creatinine 0.7 Creat Clearance w eGFR > 60 POC Glucometer 112 Random Glucose 123 H Calcium 10.0 Total Bilirubin 0.6 AST 57 H ALT 84 H Alkaline Phosphatase 72 Total Protein 8.4 H Albumin 4.1 Urine Color Urine Appearance Urine pH Ur Specific [place] Urine Protein Urine Glucose (UA) Urine Ketones Urine Blood Urine Nitrite Urine Bilirubin Urine Urobilinogen Ur Leukocyte Esterase Urine WBC (Auto) Urine RBC (Auto) Ur Epithelial Cells Hyaline Casts Urine Mucus RPR Titer 05/12/18 05/12/18 05/13/18 05:55 16:34 05:57 WBC RBC Hgb Hct MCV MCH MCHC RDW Plt Count MPV Sodium Potassium Chloride Carbon Dioxide Anion Gap BUN Creatinine Creat Clearance w eGFR POC Glucometer 106 93 Random Glucose Calcium Total Bilirubin AST ALT Alkaline Phosphatase Total Protein Albumin Urine Color Urine Appearance Urine pH Ur Specific [place] Urine Protein Urine Glucose (UA) Urine Ketones Urine Blood Urine Nitrite Urine Bilirubin Urine Urobilinogen Ur Leukocyte Esterase Urine WBC (Auto) Urine RBC (Auto) Ur Epithelial Cells Hyaline Casts Urine Mucus RPR Titer Nonreactive aaox3 ambulating no acute distress Assessment: 05/13/18 10:47 withdrawal sx Plan: continue detox increase fluids visine ordered bacitracin oint lidocaine s/s
[2018-05-13] MEDS: BACITRACIN 0.9 GM PACKET TP SCH ×2 (13:05→22:46)
[2018-05-13] MEDS: HYDROCHLOROTHIAZIDE 25 MG TABLET (FP) PO SCH (13:05)
[2018-05-13] MEDS: ASPIRIN 81 MG CHEWABLE TABLETS PO SCH (13:05)
[2018-05-13] MEDS: LISINOPRIL 10 MG TABLET (FP) PO SCH (13:05)
[2018-05-13] MEDS: chlordiazePOXIDE HCL 25 MG CAPSULE PO PRN (13:06)
[2018-05-13] MEDS: NAPHAZOLINE/PHENIRAMINE OPHTHALMIC 15 ML BOTTLE OU SCH ×4 (13:06→22:46)
[2018-05-13] MEDS: NICOTINE 21 MG/24 HOURS TOPICAL PATCH TD SCH (13:06)
[2018-05-13] MEDS: PRENATAL VITAMINS W/ FOLIC ACID TABLET (FP) PO SCH (13:08)
[2018-05-13] MEDS: chlordiazePOXIDE 5 MG CAPSULE PO SCH ×2 (17:25→22:46)
[2018-05-13] MEDS: THIAMINE HCL 100 MG TABLET (FP) PO SCH (22:46)
[2018-05-14] MEDS: chlordiazePOXIDE 5 MG CAPSULE PO SCH ×2 (05:25→10:49)
[2018-05-14] MEDS: metFORMIN HCL 500 MG TABLET (FP) PO SCH ×2 (06:53→18:22)
[2018-05-14] MEDS: PRENATAL VITAMINS W/ FOLIC ACID TABLET (FP) PO SCH (10:47)
[2018-05-14] MEDS: BACITRACIN 0.9 GM PACKET TP SCH ×2 (10:48→22:46)
[2018-05-14] MEDS: ASPIRIN 81 MG CHEWABLE TABLETS PO SCH (10:49)
[2018-05-14] MEDS: NAPHAZOLINE/PHENIRAMINE OPHTHALMIC 15 ML BOTTLE OU SCH ×4 (10:50→22:49)
[2018-05-14] MEDS: NICOTINE 21 MG/24 HOURS TOPICAL PATCH TD SCH (10:51)
--- NOTE | 2018-05-14 10:54 | PN ---
BHS Progress Note (SOAP) Subjective: sweats irritable Objective: 05/14/18 10:50 Vital Signs Temperature 98.2 F 05/14/18 09:37 Pulse Rate 82 05/14/18 09:37 Respiratory Rate 16 05/14/18 09:37 Blood Pressure 106/65 05/14/18 09:37 O2 Sat by Pulse Oximetry (%) aaox3 ambulating no acute distress Assessment: 05/14/18 10:50 withdrawal sx Plan: continue detox increase fluids
[2018-05-14] MEDS: LISINOPRIL 10 MG TABLET (FP) PO SCH (11:23)
[2018-05-14] MEDS: HYDROCHLOROTHIAZIDE 25 MG TABLET (FP) PO SCH (11:23)
[2018-05-14] MEDS: chlordiazePOXIDE HCL 10 MG CAPSULE PO SCH ×2 (18:22→22:49)
[2018-05-14] MEDS: THIAMINE HCL 100 MG TABLET (FP) PO SCH (22:49)
[2018-05-15] MEDS: chlordiazePOXIDE HCL 10 MG CAPSULE PO SCH (05:34)
[2018-05-15] MEDS: metFORMIN HCL 500 MG TABLET (FP) PO SCH (06:05)
[2018-05-15] MEDS: ASPIRIN 81 MG CHEWABLE TABLETS PO SCH (09:29)
[2018-05-15] MEDS: LISINOPRIL 10 MG TABLET (FP) PO SCH (09:29)
[2018-05-15] MEDS: PRENATAL VITAMINS W/ FOLIC ACID TABLET (FP) PO SCH (09:29)
[2018-05-15] MEDS: HYDROCHLOROTHIAZIDE 25 MG TABLET (FP) PO SCH (09:29)
[2018-05-15 09:32] VITALS: BP 120/90; PULSE 78; TEMP 97.9
== END 2018-05-15 09:35 | disposition home or self-care (01) | DRG 775 ==
LOC: YASAS 10:36 → Y6N 12:20
PROC: HZ2ZZZZ Detoxification Services for Substance Abuse Treatment (ICD-10-PCS; principal; 2018-05-11)
DX: F10.230 Alcohol dependence with withdrawal, uncomplicated (principal); F31.9 Bipolar disorder, unspecified; F19.282 Other psychoactive substance dependence with psychoactive substance-induced sleep disorder; F19.24 Other psychoactive substance dependence with psychoactive substance-induced mood disorder; I10 Essential (primary) hypertension; E11.9 Type 2 diabetes mellitus without complications; K21.9 Gastro-esophageal reflux disease without esophagitis; Z91.14 Patient's other noncompliance with medication regimen; S05.10XD Contusion of eyeball and orbital tissues, unspecified eye, subsequent encounter; Y93.89 Activity, other specified; Y92.414 Local residential or business street as the place of occurrence of the external cause; Z87.828 Personal history of other (healed) physical injury and trauma; Z59.0 Homelessness; Z91.81 History of falling; S09.8XXD Other specified injuries of head, subsequent encounter
CPT/HCPCS: 36415; 80053; 81003; 81015; 82962; 85027; 86593; 93005; 93010